=== PATIENT | female | born 2000 | race Two or more races ===

== ENCOUNTER 2023-09-14 13:08 | Emergency (ER) | payer OTHER ==
[~2023-09-14] VITALS: Ht 160 cm; Wt 63.5 kg
[2023-09-14] MEDS ORDERED: [UNRECOGNIZED DRUG - OTHER] PO (15:00)
== END 2023-09-14 16:23 | disposition home or self-care (01) ==
LOC: ER 13:08
DX: H66.92 Otitis media, unspecified, left ear (principal)